=== PATIENT | female | born 1970 | race Caucasian/White ===

== ENCOUNTER → 2025-02-25 09:19 | Outpatient (REF) | payer BC, SELFPAY | LOC: RCS 09:19 | PROVIDERS: ATTENDING PHYSICIAN Internal Medicine; FAMILY PHYSICIAN Family Medicine | DX: I49.3 Ventricular premature depolarization (principal); I10 Essential (primary) hypertension; I35.8 Other nonrheumatic aortic valve disorders | CPT/HCPCS: 93306 ==